=== PATIENT | female | born 1960 | race Two or more races ===

== ENCOUNTER 2021-10-11 22:34 | Inpatient (IN) | payer BC, OTHER ==
[~2021-10-11] VITALS: Ht 167.6 cm; Wt 71.6 kg
[2021-10-11 23:35] LABS: Basophils # (auto) 0.1 10 ^3/uL (0-0.2); Basophils % (auto) 0.8 % (0.0-2.0); Eosinophils # (auto) 0 10 ^3/uL (0-0.8); Hematocrit 36.9 % (36.0-46.0); Hemoglobin 13.1 g/dL (12.2-16.2); Lymphocytes # (auto) 0.4 10 ^3/uL (0.4-5.4); Lymphocytes % (auto) 5.9 % (10.0-50.0); Mean Corpuscular Hemoglobin 30.3 pg (28.0-32.0); Mean Corpuscular Hgb Conc. 35.6 g/dL (32.0-36.0); Monocytes # (auto) 0.3 10 ^3/uL (0-1.3); Monocytes % (auto) 4.2 % (0.0-12.0); Neutrophils # (auto) 6.5 10 ^3/uL (1.6-8.6); Neutrophils % (auto) 89.1 % (37.0-80.0); Red Blood Cells 4.34 10^6/uL (4.0-5.20); Red Cell Distribution Width 13.2 % (11.8-14.3); White Blood Cell 7.2 10^3/uL (4.4-10.8)
[2021-10-12 01:29] LABS: Albumin 2.8 g/dL (3.4-5.0); Calcium 7.6 mg/dL (8.5-10.1)
[2021-10-12 01:30] LABS: BUN/Creatinine Ratio 26.4
[2021-10-12 01:33] LABS: Bilirubin, Total 0.6 mg/dL (0.2-1.0); Total Protein 6.3 g/dL (6.4-8.2)
[2021-10-12 01:34] LABS: Potassium 2.6 mmol/L (3.5-5.1)
[2021-10-12] MEDS ORDERED: POTASSIUM EFFERVESENT TAB 25 MEQ PO ONE (01:45)
[2021-10-12] MEDS ORDERED: ACETAMINOPHEN 325 MG TAB PO ONE (02:00)
[2021-10-12] MEDS ORDERED: cefTRIAXone 1GM/50ML D5W 50 ML IV ONE (02:45)
[2021-10-12] MEDS ORDERED: DexAMETHasone SOD PHOS 10MG/1ML VIAL INJ IV ONE (02:45)
[2021-10-12] MEDS ORDERED: AZITHROMYCIN 500MG/ 250ML 250 ML IV ONE (02:45)
[2021-10-12] MEDS ORDERED: ASPirin 81 mg TAB PO ONE (04:45)
[2021-10-12] MEDS ORDERED: ACETAMINOPHEN 500 MG TAB PO PRN (05:30)
[2021-10-12] MEDS ORDERED: ALBUMIN 5% 250 ML IV ONE (05:30)
[2021-10-12] MEDS ORDERED: ONDANSETRON HCL 4 MG/2 ML VIAL IV PRN (05:30)
[2021-10-12] MEDS ORDERED: MORPHINE SULFATE INJECTION 2 MG/ML SYRG IV PRN (05:30)
[2021-10-12] MEDS ORDERED: NITROGLYCERIN 0.4 MG SL TAB SL PRN (05:30)
[2021-10-12 06:57] LABS: Urine Bacteria FEW /hpf (None Seen); Urine Blood TRACE /uL (Negative); Urine Specific Gravity 1.007 (1.001-1.035); Urine WBC 1 /hpf (0 - 5)
[2021-10-12] MEDS ORDERED: SODIUM CHLORIDE 0.9% 500 ML IV ONE (07:45)
[2021-10-12 08:39] LABS: BUN/Creatinine Ratio 27.7; Calcium 7.2 mg/dL (8.5-10.1)
[2021-10-12 08:51] LABS: Potassium 2.7 mmol/L (3.5-5.1)
[2021-10-12] MEDS: DexAMETHasone SOD PHOS 10MG/1ML VIAL INJ IV SCH (09:43)
[2021-10-12] MEDS: ASCORBIC ACID 1,000 MG TAB PO SCH (09:44)
[2021-10-12] MEDS: CHOLECALCIFEROL (VITD3) 2,000 UNIT CAP/TAB PO SCH (09:44)
[2021-10-12] MEDS: ENOXAPARIN SOD 40 MG/0.4 ML SYRINGE SC SCH (09:45)
[2021-10-12] MEDS: PANTOPRAZOLE 40 MG TAB PO SCH (09:45)
[2021-10-12 10:00] VITALS: BP 103/60
[2021-10-12] MEDS ORDERED: POTASSIUM CHL 20 Meq TABLET PO ONE ×2 (12:00→14:00)
[2021-10-12 13:00] VITALS: BP 100/64
[2021-10-12] MEDS: ALBUTEROL SULF HFA 90MCG INH 200DOSE IN PRN ×2 (14:50→20:26)
[2021-10-12 16:38] VITALS: BP 94/60
[2021-10-12] MEDS: cefTRIAXone 1GM/50ML D5W 50 ML IV SCH (20:35)
[2021-10-12 22:00] VITALS: BP 101/63
[2021-10-12] MEDS: AZITHROMYCIN 500MG/ 250ML 250 ML IV SCH (22:23)
[2021-10-13] VITALS (7 sets, daily range): BP systolic 91–104; BP diastolic 59–67
[2021-10-13] MEDS: ALBUTEROL SULF HFA 90MCG INH 200DOSE IN PRN (06:03)
[2021-10-13 07:02] LABS: Basophils # (auto) 0 10 ^3/uL (0-0.2); Eosinophils # (auto) 0 10 ^3/uL (0-0.8); Mean Corpuscular Volume 85.6 fL (80.0-100.0); Nucleated Red Blood Cells % 0.1 %
[2021-10-13 07:04] LABS: Basophils % (auto) 0.3 % (0.0-2.0); Eosinophils % (auto) 0.1 % (0.0-7.0); Hematocrit 35.1 % (36.0-46.0); Hemoglobin 12.6 g/dL (12.2-16.2); Lymphocytes # (auto) 0.7 10 ^3/uL (0.4-5.4); Lymphocytes % (auto) 11.3 % (10.0-50.0); Mean Corpuscular Hemoglobin 30.7 pg (28.0-32.0); Mean Corpuscular Hgb Conc. 35.8 g/dL (32.0-36.0); Monocytes # (auto) 0.2 10 ^3/uL (0-1.3); Neutrophils # (auto) 5.2 10 ^3/uL (1.6-8.6); Neutrophils % (auto) 84.3 % (37.0-80.0); Red Cell Distribution Width 13.4 % (11.8-14.3); White Blood Cell 6.2 10^3/uL (4.4-10.8)
[2021-10-13 07:11] LABS: Albumin 2.4 g/dL (3.4-5.0); BUN/Creatinine Ratio 15.1; Calcium 7.5 mg/dL (8.5-10.1); Potassium 3.4 mmol/L (3.5-5.1)
[2021-10-13 07:14] LABS: Bilirubin, Total 0.4 mg/dL (0.2-1.0); Total Protein 5.8 g/dL (6.4-8.2)
[2021-10-13] MEDS: guaiFENesin-DM 100/10mg/5ml SYR PO PRN ×2 (08:31→17:02)
[2021-10-13] MEDS: DexAMETHasone SOD PHOS 10MG/1ML VIAL INJ IV SCH (08:32)
[2021-10-13] MEDS: PANTOPRAZOLE 40 MG TAB PO SCH (08:32)
[2021-10-13] MEDS: ASCORBIC ACID 1,000 MG TAB PO SCH (08:32)
[2021-10-13] MEDS: CHOLECALCIFEROL (VITD3) 2,000 UNIT CAP/TAB PO SCH (08:33)
[2021-10-13] MEDS: ENOXAPARIN SOD 40 MG/0.4 ML SYRINGE SC SCH (08:34)
[2021-10-13] MEDS ORDERED: ACETAMINOPHEN 500 MG TAB PO PRN (09:00)
[2021-10-13] MEDS ORDERED: REMDESIVIR PER PHARMACY 0 ML IV SCH (12:00)
[2021-10-13] MEDS ORDERED: REMDESIVIR 200 MG in NS 210ml LOADING DOSE ADULT IV ONE (15:00)
[2021-10-13] MEDS: cefTRIAXone 1GM/50ML D5W 50 ML IV SCH (20:53)
[2021-10-13] MEDS: TEMAZEPAM 15 MG CAP PO PRN (20:54)
[2021-10-13] MEDS: AZITHROMYCIN 500MG/ 250ML 250 ML IV SCH (21:53)
[2021-10-14 05:05] VITALS: BP 101/65
[2021-10-14 07:06] LABS: Basophils # (auto) 0 10 ^3/uL (0-0.2); Basophils % (auto) 0.2 % (0.0-2.0); Eosinophils # (auto) 0 10 ^3/uL (0-0.8); Hematocrit 35.9 % (36.0-46.0); Hemoglobin 12.5 g/dL (12.2-16.2); Lymphocytes # (auto) 0.4 10 ^3/uL (0.4-5.4); Lymphocytes % (auto) 11.4 % (10.0-50.0); Mean Corpuscular Hemoglobin 30.1 pg (28.0-32.0); Mean Corpuscular Hgb Conc. 34.8 g/dL (32.0-36.0); Mean Corpuscular Volume 86.5 fL (80.0-100.0); Monocytes # (auto) 0.4 10 ^3/uL (0-1.3); Monocytes % (auto) 10.4 % (0.0-12.0); Neutrophils # (auto) 2.8 10 ^3/uL (1.6-8.6); Nucleated Red Blood Cells % 0.2 %; Red Blood Cells 4.15 10^6/uL (4.0-5.20); Red Cell Distribution Width 13.3 % (11.8-14.3); White Blood Cell 3.6 10^3/uL (4.4-10.8)
[2021-10-14 07:27] LABS: Albumin 2.4 g/dL (3.4-5.0); Calcium 7.4 mg/dL (8.5-10.1); Potassium 3.5 mmol/L (3.5-5.1)
[2021-10-14 07:30] LABS: BUN/Creatinine Ratio 27.3; Bilirubin, Total 0.3 mg/dL (0.2-1.0); Total Protein 5.9 g/dL (6.4-8.2)
[2021-10-14 09:00] VITALS: BP 95/56
[2021-10-14] MEDS: DexAMETHasone SOD PHOS 10MG/1ML VIAL INJ IV SCH (10:08)
[2021-10-14] MEDS: PANTOPRAZOLE 40 MG TAB PO SCH (10:08)
[2021-10-14] MEDS: ASCORBIC ACID 1,000 MG TAB PO SCH (10:09)
[2021-10-14] MEDS: CHOLECALCIFEROL (VITD3) 2,000 UNIT CAP/TAB PO SCH (10:10)
[2021-10-14] MEDS: ENOXAPARIN SOD 40 MG/0.4 ML SYRINGE SC SCH (10:10)
[2021-10-14] MEDS: guaiFENesin-DM 100/10mg/5ml SYR PO PRN (10:11)
[2021-10-14 13:08] VITALS: BP 112/69
[2021-10-14] MEDS: REMDESIVIR 100mg 100 MG in SODIUM CHL 0.9% 230 ML IV SCH (15:38)
[2021-10-14 17:00] VITALS: BP 90/61
[2021-10-14] MEDS: cefTRIAXone 1GM/50ML D5W 50 ML IV SCH (20:02)
[2021-10-14] MEDS: TEMAZEPAM 15 MG CAP PO PRN (20:06)
[2021-10-14] MEDS: AZITHROMYCIN 500MG/ 250ML 250 ML IV SCH (21:09)
[2021-10-14 21:55] VITALS: BP 101/68
[2021-10-15 05:51] VITALS: BP 100/61
[2021-10-15 06:41] LABS: Basophils # (auto) 0 10 ^3/uL (0-0.2); Basophils % (auto) 0.1 % (0.0-2.0); Eosinophils # (auto) 0 10 ^3/uL (0-0.8); Hematocrit 35.6 % (36.0-46.0); Hemoglobin 12.1 g/dL (12.2-16.2); Lymphocytes # (auto) 0.4 10 ^3/uL (0.4-5.4); Lymphocytes % (auto) 6.1 % (10.0-50.0); Mean Corpuscular Hemoglobin 29.6 pg (28.0-32.0); Monocytes # (auto) 0.6 10 ^3/uL (0-1.3); Neutrophils # (auto) 4.9 10 ^3/uL (1.6-8.6); Neutrophils % (auto) 83.8 % (37.0-80.0); Red Blood Cells 4.09 10^6/uL (4.0-5.20); Red Cell Distribution Width 13.2 % (11.8-14.3); White Blood Cell 5.9 10^3/uL (4.4-10.8)
[2021-10-15 06:58] LABS: Potassium 3.5 mmol/L (3.5-5.1)
[2021-10-15 07:16] LABS: Albumin 2.3 g/dL (3.4-5.0); BUN/Creatinine Ratio 29.6; Bilirubin, Total 0.3 mg/dL (0.2-1.0); Calcium 7.4 mg/dL (8.5-10.1); Total Protein 5.5 g/dL (6.4-8.2)
[2021-10-15 09:10] VITALS: BP 96/57
[2021-10-15] MEDS: DexAMETHasone SOD PHOS 10MG/1ML VIAL INJ IV SCH (09:44)
[2021-10-15] MEDS: PANTOPRAZOLE 40 MG TAB PO SCH (09:44)
[2021-10-15] MEDS: ASCORBIC ACID 1,000 MG TAB PO SCH (09:44)
[2021-10-15] MEDS: CHOLECALCIFEROL (VITD3) 2,000 UNIT CAP/TAB PO SCH (09:45)
[2021-10-15] MEDS: ENOXAPARIN SOD 40 MG/0.4 ML SYRINGE SC SCH ×2 (09:45→21:23)
[2021-10-15] MEDS ORDERED: FUROSEMIDE 20 MG/2 ML VIAL IV ONE (12:45)
[2021-10-15] MEDS ORDERED: POTASSIUM CHL 20 Meq TABLET PO ONE (12:45)
[2021-10-15 13:00] VITALS: BP 102/60
[2021-10-15] MEDS: REMDESIVIR 100mg 100 MG in SODIUM CHL 0.9% 230 ML IV SCH (15:10)
[2021-10-15 17:25] VITALS: BP 114/73
[2021-10-15] MEDS: TEMAZEPAM 15 MG CAP PO PRN (20:13)
[2021-10-15] MEDS: cefTRIAXone 1GM/50ML D5W 50 ML IV SCH (20:13)
[2021-10-15] MEDS: AZITHROMYCIN 500MG/ 250ML 250 ML IV SCH (21:20)
[2021-10-15 22:00] VITALS: BP 101/49
[2021-10-16 05:00] VITALS: BP 120/77
[2021-10-16 07:34] LABS: Basophils # (auto) 0 10 ^3/uL (0-0.2); Eosinophils # (auto) 0 10 ^3/uL (0-0.8); Hematocrit 38.5 % (36.0-46.0); Hemoglobin 12.9 g/dL (12.2-16.2); Lymphocytes # (auto) 0.7 10 ^3/uL (0.4-5.4); Lymphocytes % (auto) 5.6 % (10.0-50.0); Mean Corpuscular Hemoglobin 29.1 pg (28.0-32.0); Mean Corpuscular Hgb Conc. 33.6 g/dL (32.0-36.0); Mean Corpuscular Volume 86.8 fL (80.0-100.0); Monocytes # (auto) 1.1 10 ^3/uL (0-1.3); Monocytes % (auto) 9.1 % (0.0-12.0); Neutrophils # (auto) 10.7 10 ^3/uL (1.6-8.6); Neutrophils % (auto) 85.3 % (37.0-80.0); Red Blood Cells 4.44 10^6/uL (4.0-5.20); Red Cell Distribution Width 13.5 % (11.8-14.3); White Blood Cell 12.5 10^3/uL (4.4-10.8)
[2021-10-16 07:45] LABS: Albumin 2.5 g/dL (3.4-5.0); Calcium 7.4 mg/dL (8.5-10.1); Potassium 3.3 mmol/L (3.5-5.1)
[2021-10-16 07:52] LABS: BUN/Creatinine Ratio 35.9; Bilirubin, Total 0.4 mg/dL (0.2-1.0); CRP High Sensitivity 2.13 mg/dL (< 0.3); Total Protein 5.6 g/dL (6.4-8.2)
[2021-10-16 09:23] VITALS: BP 109/68
[2021-10-16] MEDS: ENOXAPARIN SOD 40 MG/0.4 ML SYRINGE SC SCH ×2 (09:44→21:45)
[2021-10-16] MEDS: FUROSEMIDE 20 MG/2 ML VIAL IV SCH (09:44)
[2021-10-16] MEDS: CHOLECALCIFEROL (VITD3) 2,000 UNIT CAP/TAB PO SCH (09:44)
[2021-10-16] MEDS: PANTOPRAZOLE 40 MG TAB PO SCH (09:44)
[2021-10-16] MEDS: ASCORBIC ACID 1,000 MG TAB PO SCH (09:44)
[2021-10-16] MEDS: DexAMETHasone SOD PHOS 10MG/1ML VIAL INJ IV SCH (09:44)
[2021-10-16] MEDS ORDERED: POTASSIUM CHL 20 Meq TABLET PO ONE (10:30)
[2021-10-16 12:49] VITALS: BP 102/66
[2021-10-16] MEDS: REMDESIVIR 100mg 100 MG in SODIUM CHL 0.9% 230 ML IV SCH (15:44)
[2021-10-16 17:00] VITALS: BP 101/71
[2021-10-16] MEDS: cefTRIAXone 1GM/50ML D5W 50 ML IV SCH (20:06)
[2021-10-16] MEDS: AZITHROMYCIN 500MG/ 250ML 250 ML IV SCH (21:45)
[2021-10-16 22:00] VITALS: BP 98/49
[2021-10-17 05:00] VITALS: BP 116/79
[2021-10-17 06:32] LABS: Basophils # (auto) 0 10 ^3/uL (0-0.2); Basophils % (auto) 0.2 % (0.0-2.0); Eosinophils # (auto) 0 10 ^3/uL (0-0.8); Eosinophils % (auto) 0.3 % (0.0-7.0); Hematocrit 36.2 % (36.0-46.0); Hemoglobin 12.4 g/dL (12.2-16.2); Lymphocytes # (auto) 0.8 10 ^3/uL (0.4-5.4); Lymphocytes % (auto) 8.7 % (10.0-50.0); Mean Corpuscular Hemoglobin 29.8 pg (28.0-32.0); Mean Corpuscular Hgb Conc. 34.2 g/dL (32.0-36.0); Mean Corpuscular Volume 87.2 fL (80.0-100.0); Monocytes # (auto) 0.8 10 ^3/uL (0-1.3); Monocytes % (auto) 8.9 % (0.0-12.0); Neutrophils # (auto) 7.8 10 ^3/uL (1.6-8.6); Neutrophils % (auto) 81.9 % (37.0-80.0); Nucleated Red Blood Cells % 0.1 %; Red Blood Cells 4.15 10^6/uL (4.0-5.20); Red Cell Distribution Width 13.2 % (11.8-14.3); White Blood Cell 9.5 10^3/uL (4.4-10.8)
[2021-10-17 07:07] LABS: Potassium 3.5 mmol/L (3.5-5.1)
[2021-10-17 07:11] LABS: Albumin 2.2 g/dL (3.4-5.0); Calcium 7.7 mg/dL (8.5-10.1); Magnesium 1.9 mg/dL (1.6-2.6)
[2021-10-17 07:14] LABS: Bilirubin, Total 0.4 mg/dL (0.2-1.0); Total Protein 5.3 g/dL (6.4-8.2)
[2021-10-17 08:30] VITALS: BP_SYST 104; BP_SYST 127; BP_DIAS 69; BP_DIAS 78
[2021-10-17] MEDS: ASCORBIC ACID 1,000 MG TAB PO SCH (09:31)
[2021-10-17] MEDS: ENOXAPARIN SOD 40 MG/0.4 ML SYRINGE SC SCH ×2 (09:31→21:25)
[2021-10-17] MEDS: CHOLECALCIFEROL (VITD3) 2,000 UNIT CAP/TAB PO SCH (09:31)
[2021-10-17] MEDS: PANTOPRAZOLE 40 MG TAB PO SCH (09:31)
[2021-10-17] MEDS: DexAMETHasone SOD PHOS 10MG/1ML VIAL INJ IV SCH (09:31)
[2021-10-17] MEDS: FUROSEMIDE 20 MG/2 ML VIAL IV SCH (09:32)
[2021-10-17 12:30] VITALS: BP 113/73
[2021-10-17] MEDS: REMDESIVIR 100mg 100 MG in SODIUM CHL 0.9% 230 ML IV SCH (15:15)
[2021-10-17 17:00] VITALS: BP 106/62
[2021-10-17 22:00] VITALS: BP 110/69
[2021-10-18 05:00] VITALS: BP 113/73
[2021-10-18 09:00] VITALS: BP 121/66
[2021-10-18] MEDS: CHOLECALCIFEROL (VITD3) 2,000 UNIT CAP/TAB PO SCH (09:30)
[2021-10-18] MEDS: ENOXAPARIN SOD 40 MG/0.4 ML SYRINGE SC SCH ×2 (09:30→22:19)
[2021-10-18] MEDS: ASCORBIC ACID 1,000 MG TAB PO SCH (09:30)
[2021-10-18] MEDS: FUROSEMIDE 20 MG/2 ML VIAL IV SCH (09:31)
[2021-10-18] MEDS: DexAMETHasone SOD PHOS 10MG/1ML VIAL INJ IV SCH (09:31)
[2021-10-18] MEDS: PANTOPRAZOLE 40 MG TAB PO SCH (09:31)
[2021-10-18 13:00] VITALS: BP 103/70
[2021-10-18 17:00] VITALS: BP 105/70
[2021-10-18] MEDS: guaiFENesin-DM 100/10mg/5ml SYR PO PRN (17:27)
[2021-10-18 22:00] VITALS: BP 135/70
[2021-10-19 05:00] VITALS: BP 99/66
[2021-10-19 08:53] VITALS: BP 93/59
[2021-10-19] MEDS: ENOXAPARIN SOD 40 MG/0.4 ML SYRINGE SC SCH (09:59)
[2021-10-19] MEDS: PANTOPRAZOLE 40 MG TAB PO SCH (10:00)
[2021-10-19] MEDS: CHOLECALCIFEROL (VITD3) 2,000 UNIT CAP/TAB PO SCH (10:00)
[2021-10-19] MEDS: ASCORBIC ACID 1,000 MG TAB PO SCH (10:00)
[2021-10-19] MEDS: DexAMETHasone SOD PHOS 10MG/1ML VIAL INJ IV SCH (10:01)
[2021-10-19] MEDS: FUROSEMIDE 20 MG/2 ML VIAL IV SCH (10:01)
[2021-10-19] MEDS: guaiFENesin-DM 100/10mg/5ml SYR PO PRN (10:02)
[2021-10-19] MEDS ORDERED: METH4PAK PO (11:41)
[2021-10-19] MEDS ORDERED: ALBUAER3 IN (11:41)
[2021-10-19] MEDS ORDERED: ASPI-543 PO (11:41)
[2021-10-19 12:55] VITALS: BP 100/60
[2021-10-19 13:00] VITALS: BP 100/60
== END 2021-10-19 16:30 | disposition home or self-care (01) | DRG 177 ==
LOC: EDBD 22:34 → ER 22:39 → TELE 10-12 05:27 → TELE-EAST 10-12 10:36
PROVIDERS: ADMIT Nurse Practitioner; ATTEND Internal Medicine
PROC: 3E0234Z Introduction of Serum, Toxoid and Vaccine into Muscle, Percutaneous Approach (ICD-10-PCS; principal; 2021-10-13)
DX: U07.1 COVID-19 (principal); J12.82 Pneumonia due to coronavirus disease 2019; E43 Unspecified severe protein-calorie malnutrition; J96.01 Acute respiratory failure with hypoxia; N17.9 Acute kidney failure, unspecified; D68.59 Other primary thrombophilia; E87.6 Hypokalemia; Z23 Encounter for immunization; I10 Essential (primary) hypertension; Z88.4 Allergy status to anesthetic agent; Z88.1 Allergy status to other antibiotic agents; Z68.25 Body mass index [BMI] 25.0-25.9, adult
CPT/HCPCS: 36415; 71045; 80048; 80053; 81001; 82306; 82728; 83036; 83615; 83735; 83880; 84443; 84484; 85025; 85379; 86141; 87426; 93005; 94640; 96365; 96367; 96375; 99291; G0378; J0696; J1100; J2405